=== PATIENT | female | born 1945 | race African-American/Black ===

== ENCOUNTER 2024-07-02 10:07 | Inpatient (IN) | payer MEDICARE, MEDICAID ==
[~2024-07-02] VITALS: Ht 165.1 cm; Wt 135.6 kg
[2024-07-02 10:18] VITALS: O2SAT 99
[2024-07-02 11:20] LABS: CHLORIDE 95 mEq/L (98-107); POTASSIUM 4.6 mEq/L (3.5-5.1); SODIUM 134 mEq/L (136-145)
[2024-07-02 11:21] LABS: BASOPHILS % 0.9 % (0.0-2.0); CALCIUM 9.1 mg/dL (8.7-10.4); CARBON DIOXIDE 24 mEq/L (21-32); EOSINOPHILS % 0.6 % (0.0-5.0); HEMATOCRIT. 29.6 % (36.0-48.0); HEMOGLOBIN. 9.7 g/dL (12.0-16.0); LYMPHOCYTES % 9.9 % (20.0-50.0); MEAN CORPUSCULAR HEMOGLOBIN 32.1 pg (28.0-32.0); MEAN CORPUSCULAR HGB CONC 32.7 g/dL (31.0-37.0); MEAN CORPUSCULAR VOLUME 98.1 fL (81.0-99.0); MEAN PLATELET VOLUME 9.9 fl (7.4-10.4); MONOCYTES % 10.2 % (2.0-8.0); NEUTROPHILS % 78.4 % (40.0-76.0); PLATELET 136 x1000/uL (130-400); RED BLOOD CELL COUNT 3.02 mill/uL (4.2-5.4); WHITE BLOOD COUNT 7.5 x1000/uL (4.5-11.0)
[2024-07-02 11:26] LABS: ETHANOL BLOOD < 10 mg/dL (<10); GLUCOSE 116 mg/dL (70-105); UREA NITROGEN BLOOD 42 mg/dL (9-23)
[2024-07-02 11:43] LABS: INR 1.1; PROTHROMBIN TIME 12.2 sec (9.6-11.0)
[2024-07-02 11:50] LABS: CREATININE 7.4 mg/dL (0.6-1.0)
[2024-07-02 12:08] LABS: TROPONIN I HIGH SENSITIVITY 223 ng/L (3.0-34)
[2024-07-02] MEDS ORDERED: MAGNESIUM/ALUMINUM HYDROXIDE/SIMETHICONE 30ML UDC PO PRN (13:30)
[2024-07-02] MEDS ORDERED: GUAIFENESIN 200MG/10ML SUGAR FREE UDC PO PRN (13:30)
[2024-07-02] MEDS ORDERED: DOCUSATE SODIUM 100MG CAPSULE PO PRN (13:30)
[2024-07-02] MEDS ORDERED: DEXTROSE 50% WATER 50ML SYRINGE IV PRN (13:30)
[2024-07-02] MEDS ORDERED: ACETAMINOPHEN 325MG TABLET PO PRN ×2 (13:30)
[2024-07-02] MEDS ORDERED: ONDANSETRON HCL 4MG/2ML INJ IV PRN (13:30)
[2024-07-02] MEDS ORDERED: CLONIDINE 0.1MG TABLET PO PRN (13:30)
[2024-07-02] MEDS ORDERED: IPRATROPIUM/ALBUTEROL 0.5-3(2.5)MG/3ML NEB HHN PRN (13:30)
[2024-07-02 14:11] VITALS: BP 128/63; PULSE 70; RESP 16; TEMP 36.5
[2024-07-02 14:20] VITALS: BP 128/63; PULSE 70; RESP 16; TEMP 36.4; O2SAT 100
[2024-07-02] MEDS: FUROSEMIDE 100MG/10ML VIAL IVP SCH (14:30)
[2024-07-02 14:43] LABS: TRIGLYCERIDE 69 mg/dL (0-150)
[2024-07-02 14:44] LABS: LDL CHOLESTEROL 47 mg/dL (5-100)
[2024-07-02 14:45] LABS: CHOLESTEROL 90 mg/dL (<200); HDL CHOLESTEROL 23 mg/dL (>65)
[2024-07-02 14:47] LABS: IRON 31 ug/dL (50-170)
[2024-07-02 14:49] LABS: FERRITIN 783 ng/mL (10-291); FOLIC ACID (FOLATE) SERUM 17.78 ng/mL (>5.38)
[2024-07-02 14:50] LABS: TOTAL IRON BINDING CAPACITY 300 ug/dl (250-425); VITAMIN B12 SERUM 1304 pg/mL (211-911)
[2024-07-02 16:00] VITALS: BP 105/60; PULSE 70; RESP 18; TEMP 36.6; O2SAT 100
[2024-07-02] MEDS: BLOOD SUGAR DIAGNOSTIC STRIP TEST SCH (16:45)
[2024-07-02] MEDS: INSULIN LISPRO 100 UNITS/ML SUBCUT SCH (17:15)
[2024-07-02 20:00] VITALS: BP 110/76; PULSE 70; RESP 18; TEMP 36.5; O2SAT 99
[2024-07-02 20:13] LABS: AMMONIA < 17 uMol/L (<32)
[2024-07-02 20:39] LABS: HEPATITIS B SURFACE ANTIGEN NEGATIVE (Negative)
[2024-07-02 20:50] LABS: HEPATITIS C AB NON REACTIVE (Neg) (Negative)
[2024-07-02 20:54] LABS: TROPONIN I HIGH SENSITIVITY 180 ng/L (3.0-34)
[2024-07-02 21:00] LABS: HEPATITIS A AB IGM NEGATIVE (Negative); HEPATITIS B CORE AB IGM NEGATIVE (Negative)
[2024-07-02] MEDS ORDERED: APIXABAN 2.5 MG TABLET PO SCH (21:00)
[2024-07-02] MEDS: ATORVASTATIN CALCIUM 40MG TABLET PO SCH (23:07)
[2024-07-02] MEDS: APIXABAN 2.5 MG TABLET PO SCH (23:07)
[2024-07-02 23:50] VITALS: BP 127/74; PULSE 84; RESP 22; TEMP 36.114
[2024-07-03] VITALS (20 sets, daily range): BP systolic 122–180; BP diastolic 56–126; PULSE 60–100; RESP 11–20; TEMP 35.9–36.6; O2SAT 97–100
[2024-07-03 04:00] LABS: TROPONIN I HIGH SENSITIVITY 158 ng/L (3.0-34)
[2024-07-03 07:16] LABS: CALCIUM 9.3 mg/dL (8.7-10.4)
[2024-07-03 07:23] LABS: CREATININE 7.7 mg/dL (0.6-1.0)
[2024-07-03 07:29] LABS: BASOPHILS % 0.7 % (0.0-2.0); EOSINOPHILS % 1.3 % (0.0-5.0); HEMATOCRIT. 29.9 % (36.0-48.0); HEMOGLOBIN. 9.7 g/dL (12.0-16.0); LYMPHOCYTES % 10.2 % (20.0-50.0); MEAN CORPUSCULAR HEMOGLOBIN 32.1 pg (28.0-32.0); MEAN CORPUSCULAR HGB CONC 32.6 g/dL (31.0-37.0); MEAN CORPUSCULAR VOLUME 98.7 fL (81.0-99.0); MONOCYTES % 12.1 % (2.0-8.0); NEUTROPHILS % 75.7 % (40.0-76.0); PLATELET 129 x1000/uL (130-400); RED BLOOD CELL COUNT 3.03 mill/uL (4.2-5.4); RED CELL DISTRIBUTION WIDTH 16.8 % (11.6-14.6)
[2024-07-03] MEDS: ASPIRIN 81MG TABLET PO SCH (09:00)
[2024-07-03] MEDS: METOPROLOL TARTRATE 25MG TABLET PO SCH (09:00)
[2024-07-03] MEDS: PANTOPRAZOLE SODIUM 40 MG/VIAL IV SCH (09:00)
[2024-07-03] MEDS: FUROSEMIDE 40MG/4ML VIAL IVP SCH (09:18)
[2024-07-03] MEDS ORDERED: CEFAZOLIN 1000MG PREMIX 50 ML IV ONE (09:55)
[2024-07-03] MEDS ORDERED: FENTANYL CITRATE/PF 50MCG/ML 2ML VIAL ONE (09:56)
[2024-07-03] MEDS ORDERED: HEPARIN 1000 UNITS/ML 10ML ONE (10:13)
[2024-07-03] MEDS ORDERED: LIDOCAINE HCL 1% 10 MG/ML 10ML VIAL ONE (10:13)
[2024-07-03] MEDS ORDERED: IOHEXOL-300 100 ML BOTTLE ONE (10:14)
[2024-07-03] MEDS ORDERED: ALTEPLASE 4 MG in SODIUM CHLORIDE 0.9% 100 ML IV ONE (10:15)
[2024-07-03] MEDS: CEFAZOLIN 1000MG PREMIX 50 ML IV ONE ×2 (10:15→11:25)
[2024-07-03] MEDS: ALTEPLASE 2MG/VIAL ITC SCH (10:30)
[2024-07-03] MEDS: FENTANYL CITRATE/PF 50MCG/ML 2ML VIAL IV ONE (12:10)
[2024-07-03] MEDS ORDERED: DEXTROSE 50% WATER 50ML SYRINGE IV PRN (16:15)
[2024-07-03] MEDS ORDERED: BLOOD SUGAR DIAGNOSTIC STRIP TEST SCH (16:45)
[2024-07-04] VITALS: BP 166/70; PULSE 71; RESP 18; TEMP 36.4; O2SAT 100
[2024-07-04 04:00] VITALS: BP 124/70; PULSE 70; RESP 18; TEMP 36.3; O2SAT 98
[2024-07-04 06:47] LABS: HEMATOCRIT 30.6 % (36.0-48.0); HEMOGLOBIN 9.9 g/dL (12.0-16.0); MEAN CORPUSCULAR HEMOGLOBIN 32.2 pg (28.0-32.0); MEAN CORPUSCULAR HGB CONC 32.4 g/dL (31.0-37.0); MEAN CORPUSCULAR VOLUME 99.2 fL (81.0-99.0); PLATELET 134 x1000/uL (130-400); RED BLOOD CELL COUNT 3.08 mill/uL (4.2-5.4); RED CELL DISTRIBUTION WIDTH 16.6 % (11.6-14.6); WHITE BLOOD COUNT 7.5 x1000/uL (4.5-11.0)
[2024-07-04 07:10] LABS: CALCIUM 9.4 mg/dL (8.7-10.4); CARBON DIOXIDE 23 mEq/L (21-32); CHLORIDE 97 mEq/L (98-107); POTASSIUM 5.1 mEq/L (3.5-5.1); SODIUM 136 mEq/L (136-145)
[2024-07-04 07:16] LABS: GLUCOSE 122 mg/dL (70-105); UREA NITROGEN BLOOD 45 mg/dL (9-23)
[2024-07-04 07:18] LABS: PHOSPHORUS 5.9 mg/dL (2.5-4.9)
[2024-07-04 07:31] LABS: CREATININE 7.7 mg/dL (0.6-1.0)
[2024-07-04 08:00] VITALS: BP 117/55; PULSE 70; RESP 14; TEMP 36.2; O2SAT 96
[2024-07-04 12:00] VITALS: BP 127/67; PULSE 72; RESP 20; TEMP 36.3; O2SAT 98
[2024-07-04 16:00] VITALS: BP 132/67; PULSE 72; RESP 20; TEMP 36.6; O2SAT 94
[2024-07-04 20:00] VITALS: BP 115/48; PULSE 72; RESP 16; TEMP 36.6; O2SAT 97
[2024-07-05] VITALS (14 sets, daily range): BP systolic 77–178; BP diastolic 39–70; PULSE 68–80; RESP 16–20; TEMP 36.2–36.8; O2SAT 95–100
[2024-07-05 05:11] LABS: HEMATOCRIT 29.3 % (36.0-48.0); HEMOGLOBIN 9.5 g/dL (12.0-16.0); MEAN CORPUSCULAR HEMOGLOBIN 32.3 pg (28.0-32.0); MEAN CORPUSCULAR HGB CONC 32.6 g/dL (31.0-37.0); MEAN CORPUSCULAR VOLUME 99.2 fL (81.0-99.0); PLATELET 136 x1000/uL (130-400); RED BLOOD CELL COUNT 2.95 mill/uL (4.2-5.4); RED CELL DISTRIBUTION WIDTH 16.4 % (11.6-14.6); WHITE BLOOD COUNT 6.4 x1000/uL (4.5-11.0)
[2024-07-05 05:30] LABS: CALCIUM 9.5 mg/dL (8.7-10.4); POTASSIUM 4.8 mEq/L (3.5-5.1)
[2024-07-05 05:44] LABS: CREATININE 8.4 mg/dL (0.6-1.0)
[2024-07-06] VITALS (7 sets, daily range): BP systolic 92–125; BP diastolic 42–68; PULSE 68–85; RESP 14–17; TEMP 35.9–36.7; O2SAT 97–99
[2024-07-06] MEDS ORDERED: ALLO300T2 PO (11:54)
[2024-07-06] MEDS ORDERED: APIX2.5T PO (11:54)
[2024-07-06] MEDS ORDERED: DAPA10TA PO (11:55)
[2024-07-06] MEDS ORDERED: LATA2.5D14 EACHEYE (11:55)
[2024-07-06] MEDS ORDERED: INSU100I28 SUBCUT (11:55)
[2024-07-06] MEDS ORDERED: LANC-502 (11:55)
[2024-07-06] MEDS ORDERED: INSLIS SUBCUT (11:55)
[2024-07-06] MEDS ORDERED: BLOO-1823 (11:55)
[2024-07-06] MEDS ORDERED: GABA-1180 PO (11:56)
[2024-07-06] MEDS ORDERED: [UNRECOGNIZED DRUG - CODE] TP (11:56)
[2024-07-06] MEDS ORDERED: TC1C15 TP (11:56)
[2024-07-06] MEDS ORDERED: FURO80TA3 PO (11:56)
[2024-07-06] MEDS ORDERED: METO25TA6 PO (11:56)
[2024-07-06] MEDS ORDERED: OMEP20CA14 PO (11:56)
[2024-07-06] MEDS ORDERED: PRAV40TA58 PO (11:56)
[2024-07-06 12:05] LABS: POTASSIUM 4.7 mEq/L (3.5-5.1)
[2024-07-06 12:06] LABS: CALCIUM 9.3 mg/dL (8.7-10.4)
[2024-07-06 12:14] LABS: CREATININE 7.9 mg/dL (0.6-1.0)
[2024-07-06] MEDS ORDERED: DEXT15DR5 EACHEYE (15:55)
[2024-07-06] MEDS ORDERED: METO25TA6 MT (15:55)
[2024-07-06] MEDS ORDERED: FOLI0.8T23 MT (15:55)
[2024-07-06] MEDS ORDERED: AMI2 PO (15:55)
[2024-07-06] MEDS ORDERED: DOCU100T MT (15:55)
[2024-07-06] MEDS ORDERED: LACT1CAP68 PO (15:55)
[2024-07-06] MEDS ORDERED: ZINC220T3 PO (15:55)
[2024-07-07] MEDS ORDERED: PANTOPRAZOLE 40MG DR TABLET PO SCH (06:45)
== END 2024-07-06 18:39 | DRG 91 ==
LOC: ER 10:29 → 5WST 12:33 → EDBEDREQTM 12:38 → EDBEDREQ 12:38 → ENRESERV 12:52
PROVIDERS: ADMIT Internal Medicine; ATTEND Internal Medicine
PROC: 5A1D70Z Performance of Urinary Filtration, Intermittent, Less than 6 Hours Per Day (ICD-10-PCS; principal; 2024-07-03)
PROC: B51W1ZZ Fluoroscopy of Dialysis Shunt/Fistula using Low Osmolar Contrast (ICD-10-PCS; 2024-07-03)
PROC: B51M1ZZ Fluoroscopy of Right Upper Extremity Veins using Low Osmolar Contrast (ICD-10-PCS; 2024-07-03)
PROC: 4A00X4Z Measurement of Central Nervous Electrical Activity, External Approach (ICD-10-PCS; 2024-07-04)
PROC: 5A1D70Z Performance of Urinary Filtration, Intermittent, Less than 6 Hours Per Day (ICD-10-PCS; 2024-07-05)
DX: G92.8 Other toxic encephalopathy (principal); I21.A1 Myocardial infarction type 2; N18.6 End stage renal disease; E87.1 Hypo-osmolality and hyponatremia; I13.2 Hypertensive heart and chronic kidney disease with heart failure and with stage 5 chronic kidney disease, or end stage renal disease; E11.65 Type 2 diabetes mellitus with hyperglycemia; E04.2 Nontoxic multinodular goiter; I48.91 Unspecified atrial fibrillation; D72.821 Monocytosis (symptomatic); D72.810 Lymphocytopenia; I50.9 Heart failure, unspecified; D63.8 Anemia in other chronic diseases classified elsewhere; E61.1 Iron deficiency; L89.159 Pressure ulcer of sacral region, unspecified stage; L89.329 Pressure ulcer of left buttock, unspecified stage; M10.9 Gout, unspecified; E11.22 Type 2 diabetes mellitus with diabetic chronic kidney disease; E66.9 Obesity, unspecified; Z95.0 Presence of cardiac pacemaker; Z74.01 Bed confinement status; Z79.01 Long term (current) use of anticoagulants; Z79.899 Other long term (current) drug therapy; Z86.73 Personal history of transient ischemic attack (TIA), and cerebral infarction without residual deficits; Z91.158 Patient's noncompliance with renal dialysis for other reason; Z88.5 Allergy status to narcotic agent; Z95.2 Presence of prosthetic heart valve; Z99.2 Dependence on renal dialysis
CPT/HCPCS: 36415; 36901; 70496; 70498; 71045; 80048; 80061; 80320; 82140; 82607; 82728; 82746; 82962; 83036; 83540; 83550; 83735; 84100; 84484; 85025; 85027; 86705; 86709; 87340; 90935; 93005; 93306; 93880; 93970; 95816; 99152; 99153; 99291; C1766; C1887; J0690; J1644; J1815; J1940; J2003; J2470; J2997; J3010; J7050; Q9967; G0480; G0500